=== PATIENT | female | born 1975 | race American Indian/Alaskan Native ===

== ENCOUNTER 2018-04-17 19:37 | Emergency (ER) | payer OTHER ==
[2018-04-17] MEDS ORDERED: TORADOL IM ONE (19:47)
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
[2018-04-17 19:55] VITALS: BP 116/72
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
== END 2018-04-17 21:50 | disposition home or self-care (01) ==
LOC: ED 19:37
DX: S29.9XXA Unspecified injury of thorax, initial encounter (principal); S39.012A Strain of muscle, fascia and tendon of lower back, initial encounter; V89.2XXA Person injured in unspecified motor-vehicle accident, traffic, initial encounter; Y93.89 Activity, other specified; Y99.8 Other external cause status; Y92.410 Unspecified street and highway as the place of occurrence of the external cause
CPT/HCPCS: 71046; 72040; 72100; 72170; 96372; 99283; J1885